=== PATIENT | male | born 1955 | race American Indian/Alaskan Native ===

== ENCOUNTER 2019-12-21 08:52 | Outpatient (CLI) | payer MEDICARE ==
[2019-12-21 09:23] LABS: Basophils # (Auto) 0.1 K/mm3 (0.0-0.1); Basophils % (Auto) 0.8 % (0.0-1.8); Eosinophils # (Auto) 0.1 K/mm3 (0.0-0.4); Eosinophils % (Auto) 1.8 % (0.0-4.3); Lymphocytes # (Auto) 1.5 K/mm3 (1.2-5.4); Lymphocytes % (Auto) 20.2 % (13.4-35.0); Mean Corpuscular HGB Conc 32 % (32-34); Mean Corpuscular Volume 78 fl (84-94); Monocytes # (Auto) 0.5 K/mm3 (0.0-0.8); Platelet Count 343 K/mm3 (140-440); Red Blood Count 5.61 M/mm3 (3.65-5.03); Red Cell Distribution Width 17.1 % (13.2-15.2)
[2019-12-21 09:28] LABS: Bacteria,Urine 1+ /HPF (Negative); Bilirubin,Urine NEG (Negative); Blood,Urine SM (Negative); Color,Urine Yellow (Yellow); Mucus,Urine FEW /HPF; Protein,Urine <15 mg/dL mg/dL (Negative); Urobilinogen,Urine < 2.0 mg/dL (<2.0)
[2019-12-21 09:30] LABS: WBC,Urine > 182.0 /HPF (0.0-6.0)
[2019-12-21 09:47] LABS: Albumin 4.1 g/dL (3.9-5); Calcium 9.4 mg/dL (8.4-10.2); Chol/HDL Ratio 2.98 %
== END 2019-12-21 08:53 | disposition home or self-care (01) ==
LOC: LAB 08:52
PROVIDERS: ATTEND Internal Medicine
DX: Z13.29 Encounter for screening for other suspected endocrine disorder (principal); Z13.220 Encounter for screening for lipoid disorders; Z12.5 Encounter for screening for malignant neoplasm of prostate; R73.09 Other abnormal glucose; R31.9 Hematuria, unspecified; E78.5 Hyperlipidemia, unspecified; R94.6 Abnormal results of thyroid function studies
CPT/HCPCS: 36415; 80053; 80061; 81001; 83036; 84153; 84443; 85025

== ENCOUNTER 2020-01-25 06:18 | Day surgery (SDC) | payer MEDICARE ==
[2020-01-25] MEDS ORDERED: SODIUM CHLORIDE 0.9% 1000 ML 1,000 ML IV SCH (07:00)
[2020-01-25] MEDS ORDERED: WATER FOR IRRIG STERILE 250 ML BOTTLE IR ONE (07:37)
[2020-01-25] MEDS ORDERED: WATER FOR IRRIG STERILE 1,000 ML BOTTLE ONE (07:37)
--- NOTE | 2020-01-25 07:40 | Anesthesia Day of Surgery ---
Anesthesia Day of Surgery - Day of Surgery Patient Examined: Yes Patient H&P Reviewed: Yes Patient is NPO: Yes
--- NOTE | 2020-01-25 07:41 | Anesthesia Consultation ---
Anesthesia Consult and Med Hx Date of service: 01/25/20 - Airway Anesthetic Teeth Evaluation: Good (Missing) ROM Head & Neck: Adequate Mental/Hyoid Distance: Adequate Mallampati Class: Class II Intubation Access Assessment: Good - Pre-Operative Health Status ASA Pre-Surgery Classification: ASA2 Proposed Anesthetic Plan: MAC - Pulmonary Hx Respiratory Symptoms: No (+2FS) Hx Sleep Apnea: No - Cardiovascular System Hx Hypertension: Yes - Gastrointestinal Hx Gastroesophageal Reflux Disease: Yes
[2020-01-25] MEDS ORDERED: propofoL 200 MG/20 ML VIAL IV ONE ×2 (07:57→07:58)
[2020-01-25] MEDS ORDERED: LIDOCAINE MPF (2%) 20 MG/1 ML VIAL 5 ML ONE (08:00)
--- NOTE | 2020-01-25 08:56 | Procedure Note ---
Date of procedure: 01/25/20 Pre-op diagnosis: Colon Polyp Screening Post-op diagnosis: other (No Colon Polyps noted/ Minor,Left Colon Diverticuli/ No Internal Hemorrhoids) Procedure: Colonoscopy Anesthesia: MAC Surgeon: CAMILO WOODARD Estimated blood loss: none Pathology: none Condition: stable Disposition: same day (Resume home medicatiomn. Encourage fiber intake and follow up in 1 to 2 weeks ([phone]))
--- NOTE | 2020-01-25 09:00 | Operative Report ---
PROCEDURE: Colonoscopy. INDICATIONS: A 65-year-old -German gentleman who is having his first colonoscopy done as part of colon polyp screening. DESCRIPTIO OF PROCEDURE: The procedure was done after getting informed consent with MAC anesthesia. Initial rectal exam was unremarkable. Instrument was passed through the rectum onto the cecum, which was identified with ileocecal valve and appendiceal orifice. Cecum was also visualized on the retroverted view. No additional pathology was noted. Visualization was fair to good. Cecum, ascending colon, transverse colon showed normal mucosa. There were a few minor diverticula, very minimal noted in the left colon and the rectum appeared normal on the retroverted view. There were no biopsies done. No bleeding associated with the procedure. No complications associated with the procedure. There were no colon polyps noted. ASSESSMENT: Colon polyp screening, no colon polyps noted. Minor left colon diverticula. No internal hemorrhoids. PLAN: To encourage the patient to incorporate a little more fiber in his diet. Resume home medication. Follow up in the office in 1-2 weeks' time. Thank you for the kind referral. Procedure was done in the GI lab with assistance of the GI lab team which included GENO Minor; Alex milligan; and with assistance of Anesthesia. JOB# [id number] JEANNE/JEFERSON
[2020-01-25 09:02] VITALS: BP 152/83
--- NOTE | 2020-01-25 10:36 | Post Anesthesia Evaluation ---
- Post Anesthesia Evaluation Patient Participated: Yes Airway Patent: Yes Stable Respiratory Function: Yes Nausea/Vomiting: No Temp > 96.8F: Yes Pain Manageable: Yes Adequeate Hydration: Yes Anesthesia Complications: No Block Receding Appropriately: Not Applicable Patient on Ventilator: No
== END 2020-01-25 06:19 | disposition home or self-care (01) ==
LOC: GIO 06:18
DX: Z12.11 Encounter for screening for malignant neoplasm of colon (principal); K57.30 Diverticulosis of large intestine without perforation or abscess without bleeding; K21.9 Gastro-esophageal reflux disease without esophagitis; I10 Essential (primary) hypertension
CPT/HCPCS: G0121; J2704; J7030